=== PATIENT | male | born 1970 | race Caucasian/White ===

== ENCOUNTER 2020-09-25 10:58 | Day surgery (SDC) | payer OTHER ==
[2020-09-18 12:50] VITALS: BMI 23.0
[2020-09-25] MEDS ORDERED: DEXAMETHASONE SOD PHOSPHATE 10 MG/1 ML VIAL ONE (11:54)
[2020-09-25] MEDS ORDERED: MIDAZOLAM HCL 2 MG/2 ML SINGLE DOSE VIAL ONE (11:54)
[2020-09-25] MEDS ORDERED: ROPIVACAINE HCL 0.5% 30ML VIAL ONE (11:55)
[2020-09-25] MEDS ORDERED: ONDANSETRON 4 MG/2 ML VIAL IVPUSH PRN (12:49)
[2020-09-25] MEDS ORDERED: oxyCODONE HCL 5 MG TABLET PO PRN (12:49)
[2020-09-25] MEDS ORDERED: LACTATED RINGERS SOLUTION 1,000 ML IV SCH (13:00)
[2020-09-25] MEDS ORDERED: PROPOFOL 20 ML ONE (13:02)
[2020-09-25] MEDS ORDERED: ceFAZolin SODIUM 1 GM VIAL ONE ×2 (13:07)
[2020-09-25] MEDS ORDERED: DEXAMETHASONE SOD PHOSPHATE 4 MG/1 ML VIAL ONE (14:52)
[2020-09-25] MEDS ORDERED: ONDANSETRON 4 MG/2 ML VIAL ONE (14:52)
[2020-09-25 16:27] VITALS: BP 121/70; PULSE 84; TEMP 97.8
== END 2020-09-25 16:27 | disposition home or self-care (01) ==
LOC: FASU 10:58
PROVIDERS: ATTEND Orthopaedic Surgery Hand Surgery
PROC: 0PUL07Z Supplement Left Ulna with Autologous Tissue Substitute, Open Approach (ICD-10-PCS; 2020-09-25)
PROC: 0PHL04Z Insertion of Internal Fixation Device into Left Ulna, Open Approach (ICD-10-PCS; principal; 2020-09-25 13:15)
DX: S52.222K Displaced transverse fracture of shaft of left ulna, subsequent encounter for closed fracture with nonunion (principal); X58.XXXD Exposure to other specified factors, subsequent encounter
CPT/HCPCS: 25405; C1713; 73110-TC-LT-FY; 94760; J1100